=== PATIENT | female | born 1975 | race Two or more races ===

== ENCOUNTER 2018-06-03 08:52 | Outpatient (CLI) | payer OTHER | END 2018-06-03 09:38 | disposition home or self-care (01) | LOC: RAD 501 08:52 | DX: M19.041 Primary osteoarthritis, right hand (principal); M19.042 Primary osteoarthritis, left hand; M79.644 Pain in right finger(s); M85.88 Other specified disorders of bone density and structure, other site ==

== ENCOUNTER 2018-06-03 17:22 | Outpatient (CLI) | payer OTHER | END 2018-06-03 17:23 | disposition home or self-care (01) | LOC: LAB 17:22 | DX: M13.88 Other specified arthritis, other site (principal) ==

== ENCOUNTER 2019-01-17 09:03 | Outpatient (CLI) | payer OTHER | END 2019-01-17 10:56 | disposition home or self-care (01) | LOC: LAB 09:03 | DX: D50.8 Other iron deficiency anemias (principal); N39.0 Urinary tract infection, site not specified; E11.42 Type 2 diabetes mellitus with diabetic polyneuropathy; E78.2 Mixed hyperlipidemia; K76.0 Fatty (change of) liver, not elsewhere classified; E03.8 Other specified hypothyroidism; E55.9 Vitamin D deficiency, unspecified ==

== ENCOUNTER 2019-02-10 12:50 | Outpatient (CLI) | payer OTHER | END 2019-02-10 19:58 | disposition home or self-care (01) | LOC: NUCLEAR 12:50 | DX: M81.0 Age-related osteoporosis without current pathological fracture (principal) ==

== ENCOUNTER 2019-03-09 14:50 | Outpatient (CLI) | payer OTHER | END 2019-03-09 15:59 | disposition home or self-care (01) | LOC: RAD 501 14:50 | DX: M54.2 Cervicalgia (principal); M54.5 Low back pain ==

== ENCOUNTER 2019-06-30 09:51 | Outpatient (CLI) | payer OTHER | END 2019-06-30 10:00 | disposition home or self-care (01) | LOC: LAB 09:51 | DX: C73 Malignant neoplasm of thyroid gland (principal) ==

== ENCOUNTER → 2020-01-01 12:01 | Outpatient (CLI) | payer OTHER | END | disposition home or self-care (01) | LOC: LAB 12:01 | DX: J11.1 Influenza due to unidentified influenza virus with other respiratory manifestations (principal); R05 Cough ==

== ENCOUNTER 2020-01-13 10:07 | Outpatient (CLI) | payer OTHER | END 2020-01-13 11:04 | disposition home or self-care (01) | LOC: LAB 10:07 | DX: D64.89 Other specified anemias (principal); E11.9 Type 2 diabetes mellitus without complications; E78.2 Mixed hyperlipidemia; I10 Essential (primary) hypertension; E03.8 Other specified hypothyroidism; E55.9 Vitamin D deficiency, unspecified ==

== ENCOUNTER 2020-01-30 12:57 | Outpatient (CLI) | payer OTHER | END 2020-01-30 13:03 | disposition home or self-care (01) | LOC: MAMO-SONO 12:57 | DX: Z12.31 Encounter for screening mammogram for malignant neoplasm of breast (principal); Z87.898 Personal history of other specified conditions ==

== ENCOUNTER 2020-02-21 13:26 | Outpatient (CLI) | payer OTHER | END 2020-02-21 13:30 | disposition home or self-care (01) | LOC: LAB 13:26 | DX: J06.9 Acute upper respiratory infection, unspecified (principal); D64.89 Other specified anemias; B95.62 Methicillin resistant Staphylococcus aureus infection as the cause of diseases classified elsewhere ==

== ENCOUNTER 2020-07-16 08:16 | Outpatient (CLI) | payer OTHER | END 2020-07-16 08:32 | disposition home or self-care (01) | LOC: LAB 08:16 | PROVIDERS: ATTEND Internal Medicine Sports Medicine | DX: D64.89 Other specified anemias (principal); E11.9 Type 2 diabetes mellitus without complications; E78.2 Mixed hyperlipidemia; E03.8 Other specified hypothyroidism; I10 Essential (primary) hypertension ==

== ENCOUNTER → 2021-01-10 10:11 | Outpatient (CLI) | payer OTHER | END | disposition home or self-care (01) | LOC: LAB 10:11 | PROVIDERS: ATTEND Internal Medicine Sports Medicine | DX: D64.89 Other specified anemias (principal); E11.9 Type 2 diabetes mellitus without complications; E78.2 Mixed hyperlipidemia; E03.8 Other specified hypothyroidism; I10 Essential (primary) hypertension ==

== ENCOUNTER → 2021-07-10 11:31 | Outpatient (CLI) | payer OTHER | END | disposition home or self-care (01) | LOC: LAB 11:31 | PROVIDERS: ATTEND Internal Medicine Sports Medicine | DX: D64.89 Other specified anemias (principal); E11.9 Type 2 diabetes mellitus without complications; E78.2 Mixed hyperlipidemia; I10 Essential (primary) hypertension; E03.8 Other specified hypothyroidism ==

== ENCOUNTER 2021-09-24 13:15 | Outpatient (CLI) | payer OTHER | END 2021-09-24 13:26 | disposition home or self-care (01) | LOC: MAMO-SONO 13:15 | PROVIDERS: ATTEND Internal Medicine Sports Medicine | DX: N64.89 Other specified disorders of breast (principal) ==

== ENCOUNTER 2021-09-30 13:47 | Outpatient (CLI) | payer OTHER | END 2021-09-30 13:48 | disposition home or self-care (01) | LOC: NUCLEAR 13:47 | PROVIDERS: ATTEND Internal Medicine Sports Medicine | DX: M81.0 Age-related osteoporosis without current pathological fracture (principal) ==

== ENCOUNTER 2022-01-03 10:10 | Outpatient (CLI) | payer OTHER | END 2022-01-03 10:24 | disposition home or self-care (01) | LOC: LAB 10:10 | PROVIDERS: ATTEND Internal Medicine Sports Medicine | DX: D64.9 Anemia, unspecified (principal); E11.9 Type 2 diabetes mellitus without complications; E78.2 Mixed hyperlipidemia; I10 Essential (primary) hypertension; E03.8 Other specified hypothyroidism ==

== ENCOUNTER 2022-07-11 11:19 | Outpatient (CLI) | payer OTHER | END 2022-07-11 12:38 | disposition home or self-care (01) | LOC: LAB 11:19 | PROVIDERS: ATTEND Internal Medicine Sports Medicine | DX: D64.9 Anemia, unspecified (principal); E11.9 Type 2 diabetes mellitus without complications; E78.2 Mixed hyperlipidemia; I10 Essential (primary) hypertension; E03.8 Other specified hypothyroidism; E55.9 Vitamin D deficiency, unspecified ==

== ENCOUNTER 2023-01-09 10:09 | Outpatient (CLI) | payer OTHER | END 2023-01-09 10:10 | disposition home or self-care (01) | LOC: LAB 10:09 | PROVIDERS: ATTEND Internal Medicine Sports Medicine | DX: C73 Malignant neoplasm of thyroid gland (principal); E89.0 Postprocedural hypothyroidism ==

== ENCOUNTER 2023-07-10 10:14 | Outpatient (CLI) | payer OTHER | END 2023-07-10 10:19 | disposition home or self-care (01) | LOC: LAB 10:14 | PROVIDERS: ATTEND Internal Medicine Sports Medicine | DX: E78.2 Mixed hyperlipidemia (principal); E11.9 Type 2 diabetes mellitus without complications; D64.9 Anemia, unspecified; I10 Essential (primary) hypertension; E03.8 Other specified hypothyroidism; E55.9 Vitamin D deficiency, unspecified ==

== ENCOUNTER 2023-10-08 12:08 | Outpatient (CLI) | payer OTHER | END 2023-10-08 12:20 | disposition home or self-care (01) | LOC: MAMO-SONO 12:08 | PROVIDERS: ATTEND Internal Medicine Sports Medicine | DX: Z12.31 Encounter for screening mammogram for malignant neoplasm of breast (principal); N93.8 Other specified abnormal uterine and vaginal bleeding ==

== ENCOUNTER 2023-10-08 14:02 | Outpatient (CLI) | payer OTHER | END 2023-10-08 14:03 | disposition home or self-care (01) | LOC: NUCLEAR 14:02 | PROVIDERS: ATTEND Internal Medicine Sports Medicine | DX: M81.0 Age-related osteoporosis without current pathological fracture (principal) ==

== ENCOUNTER 2024-01-22 08:12 | Outpatient (CLI) | payer OTHER ==
[2024-01-22 09:15] LABS: HEMATOCRIT 38.9 % (36.0-45.00); HEMOGLOBIN 13.4 g/dL (12.0-15.00); MEAN CELL VOLUME 94.1 fL (80.00-100.00); MEAN CORPUSCULAR HEMOGLOBIN 32.4 pg (27.00-32.0); MEAN CORPUSCULAR HGB CONC 34.4 g/dl (32.0-36.0); PLATELET COUNT 330 K/uL (150-450); RED BLOOD COUNT 4.13 M/uL (4.00-6.00); RED CELL DISTRIBUTION WIDTH 13.1 % (11.5-14.5)
[2024-01-22 09:18] LABS: URINE APPEARANCE Clear; URINE BILIRRUBIN Negative (NEGATIVE); URINE BLOOD NHT; URINE COLOR Yellow; URINE GLUCOSE Negative (NEGATIVE); URINE LEUKOCYTE Negative; URINE NITRATE Negative; URINE PROTEIN Negative (NEGATIVE); URINE UROBILINOGEN 0.2 E.U./dl
[2024-01-22 09:22] LABS: URINE BACTERIA 146.1 uL (0.0-1933); URINE EPITHELIAL CELLS 6.4 uL (0.0-38.8); URINE RBC 16.3 uL (0.0-20.8); URINE WBC 2.4 uL (0.0-23.2)
[2024-01-22 09:46] LABS: ALBUMIN 3.6 gm/dL (3.4-5.0); BILIRUBIN TOTAL 0.44 mg/dL (0.3-1.2); CALCIUM 9.6 mg/dL (8.5-10.1); CHOL HDL RATIO 3.7 (0-5.0); CREATININE SERUM 0.58 mg/dL (0.55-1.02); GFR 111.43; GLOBULINA 3.7 G/DL (2.4-3.5); POTASSIUM 3.54 mEq/L (3.5-5.1); T4 FREE 0.96 NG/ML (0.76-1.46); TOTAL PROTEIN 7.3 gm/dL (6.4-8.2); TSH 2.51 uIU/mL (0.358-3.74)
== END 2024-01-22 08:20 | disposition home or self-care (01) ==
LOC: LAB 08:12
PROVIDERS: ATTEND Internal Medicine Sports Medicine
DX: E55.9 Vitamin D deficiency, unspecified (principal); E78.2 Mixed hyperlipidemia; E03.8 Other specified hypothyroidism; D64.9 Anemia, unspecified; E11.9 Type 2 diabetes mellitus without complications; I10 Essential (primary) hypertension

== ENCOUNTER → 2024-05-30 08:08 | Outpatient (CLI) | payer OTHER ==
[2024-05-30 09:20] LABS: ALBUMIN 3.7 gm/dL (3.4-5.0); BILIRUBIN TOTAL 0.57 mg/dL (0.3-1.2); BILIRUBIN,CONJUGATED 0.26 mg/dL (0.0-0.2); BILIRUBIN,UNCONJUGATED 0.31 mg/dL (0.0-0.6); TOTAL PROTEIN 7.9 gm/dL (6.4-8.2)
[2024-05-31 08:11] LABS: hav igm NEGATIVE; hep b c NEGATIVE
[2024-05-31 08:12] LABS: hcv NON REACTIVE
== END | disposition home or self-care (01) ==
LOC: LAB 08:08
PROVIDERS: ATTEND Internal Medicine Gastroenterology
DX: C22.9 Malignant neoplasm of liver, not specified as primary or secondary (principal); C18.9 Malignant neoplasm of colon, unspecified; E74.39 Other disorders of intestinal carbohydrate absorption; R19.5 Other fecal abnormalities

== ENCOUNTER 2024-07-08 10:56 | Outpatient (CLI) | payer OTHER ==
[2024-07-08 12:08] LABS: HEMATOCRIT 36.6 % (36.0-45.00); HEMOGLOBIN 12.5 g/dL (12.0-15.00); MEAN CELL VOLUME 92.8 fL (80.00-100.00); MEAN CORPUSCULAR HEMOGLOBIN 31.6 pg (27.00-32.0); PLATELET COUNT 320 K/uL (150-450); RED BLOOD COUNT 3.95 M/uL (4.00-6.00); RED CELL DISTRIBUTION WIDTH 13.7 % (11.5-14.5)
[2024-07-08 12:09] LABS: URINE APPEARANCE Clear; URINE BILIRRUBIN Negative (NEGATIVE); URINE BLOOD Negative; URINE COLOR Yellow; URINE GLUCOSE Negative (NEGATIVE); URINE KETONE Negative (NEGATIVE); URINE LEUKOCYTE Negative; URINE NITRATE Negative; URINE PROTEIN Negative (NEGATIVE); URINE UROBILINOGEN 0.2 E.U./dl
[2024-07-08 12:11] LABS: URINE BACTERIA 60.4 uL (0.0-1933)
[2024-07-08 12:12] LABS: URINE RBC 1.3 uL (0.0-20.8); URINE WBC 1.6 uL (0.0-23.2)
[2024-07-08 12:50] LABS: ALBUMIN 3.5 gm/dL (3.4-5.0); BILIRUBIN TOTAL 0.62 mg/dL (0.3-1.2); CALCIUM 8.9 mg/dL (8.5-10.1); CHOL HDL RATIO 2.9 (0-5.0); CREATININE SERUM 0.54 mg/dL (0.55-1.02); GFR 121.01; GLOBULINA 4.1 G/DL (2.4-3.5); POTASSIUM 3.76 mEq/L (3.5-5.1); T4 FREE 0.98 NG/ML (0.76-1.46); TOTAL PROTEIN 7.6 gm/dL (6.4-8.2); TSH 1.46 uIU/mL (0.358-3.74)
== END 2024-07-08 11:03 | disposition home or self-care (01) ==
LOC: LAB 10:56
PROVIDERS: ATTEND Internal Medicine Sports Medicine
DX: D64.9 Anemia, unspecified (principal); E11.9 Type 2 diabetes mellitus without complications; E78.2 Mixed hyperlipidemia; I10 Essential (primary) hypertension; E03.9 Hypothyroidism, unspecified

== ENCOUNTER 2024-08-26 10:26 | Outpatient (CLI) | payer OTHER ==
[2024-08-26 11:30] LABS: HEMATOCRIT 37.9 % (36.0-45.00); HEMOGLOBIN 12.9 g/dL (12.0-15.00); MEAN CELL VOLUME 93.4 fL (80.00-100.00); MEAN CORPUSCULAR HEMOGLOBIN 31.9 pg (27.00-32.0); MEAN CORPUSCULAR HGB CONC 34.1 g/dl (32.0-36.0); PLATELET COUNT 283 K/uL (150-450); RED BLOOD COUNT 4.06 M/uL (4.00-6.00); RED CELL DISTRIBUTION WIDTH 13.1 % (11.5-14.5)
[2024-08-26 11:35] LABS: URINE APPEARANCE Clear; URINE BILIRRUBIN Negative (NEGATIVE); URINE BLOOD NHT; URINE COLOR Yellow; URINE GLUCOSE Negative (NEGATIVE); URINE KETONE Negative (NEGATIVE); URINE LEUKOCYTE Negative; URINE NITRATE Negative; URINE PROTEIN Negative (NEGATIVE); URINE UROBILINOGEN 0.2 E.U./dl
[2024-08-26 11:39] LABS: URINE BACTERIA 13.8 uL (0.0-1933); URINE EPITHELIAL CELLS 3.5 uL (0.0-38.8)
[2024-08-26 11:59] LABS: URINE WBC 1.5 uL (0.0-23.2)
[2024-08-26 12:02] LABS: % SATURACION 20.9 % (15-50); ALBUMIN 3.6 gm/dL (3.4-5.0); BILIRUBIN TOTAL 0.52 mg/dL (0.3-1.2); CALCIUM 8.8 mg/dL (8.5-10.1); CHOL HDL RATIO 3.7 (0-5.0); CREATININE SERUM 0.6 mg/dL (0.55-1.02); GFR 106.7; GLOBULINA 4.1 G/DL (2.4-3.5); POTASSIUM 3.87 mEq/L (3.5-5.1); T4 FREE 1.02 NG/ML (0.76-1.46); TOTAL PROTEIN 7.7 gm/dL (6.4-8.2); TSH 1.07 uIU/mL (0.358-3.74)
[2024-08-29 07:07] LABS: hav igm Negative (Negative); hcv Non Reactive (Non Reactive); hep b c Negative (Negative); hep b s ag Negative (Negative)
[2024-08-29 09:11] LABS: ESTRADIOL SERUM < 5.0 pg/mL (.); HSV I IGG TYPE SPECIFIC < 0.91 index (0.00-0.90); PROGESTERONA < 0.1 ng/mL (.); PROLACTIN 17.6 ng/mL (4.8-33.4)
[2024-08-29 23:05] LABS: chla t Negative (Negative); neiss Negative (Negative)
[2024-09-01 05:06] LABS: ANTI MULLERIAN HORMONE < 0.015 ng/mL (.)
[2024-09-01 17:11] LABS: T T 3 ng/dL (4-50); test free 0.3 pg/mL (0.0-4.2)
== END 2024-08-26 10:27 | disposition home or self-care (01) ==
LOC: LAB 10:26
PROVIDERS: ATTEND Specialist
DX: N92.6 Irregular menstruation, unspecified (principal); N92.1 Excessive and frequent menstruation with irregular cycle; R50.9 Fever, unspecified; E16.2 Hypoglycemia, unspecified; E03.9 Hypothyroidism, unspecified; E53.9 Vitamin B deficiency, unspecified; E78.5 Hyperlipidemia, unspecified; N92.5 Other specified irregular menstruation; D27.0 Benign neoplasm of right ovary; D64.9 Anemia, unspecified; Z11.3 Encounter for screening for infections with a predominantly sexual mode of transmission; Z11.4 Encounter for screening for human immunodeficiency virus [HIV]; R10.2 Pelvic and perineal pain; D25.1 Intramural leiomyoma of uterus; E78.2 Mixed hyperlipidemia; N95.1 Menopausal and female climacteric states; N91.5 Oligomenorrhea, unspecified; R42 Dizziness and giddiness

== ENCOUNTER 2025-01-13 09:44 | Outpatient (CLI) | payer OTHER ==
[2025-01-13 10:51] LABS: URINE APPEARANCE Clear; URINE BILIRRUBIN Negative (NEGATIVE); URINE BLOOD Trace; URINE COLOR Yellow; URINE GLUCOSE Negative (NEGATIVE); URINE KETONE Negative (NEGATIVE); URINE LEUKOCYTE Trace; URINE NITRATE Negative; URINE PROTEIN Negative (NEGATIVE); URINE UROBILINOGEN 0.2 E.U./dl
[2025-01-13 10:54] LABS: URINE BACTERIA 216.6 uL (0.0-1933); URINE EPITHELIAL CELLS 18.9 uL (0.0-38.8); URINE RBC 10.7 uL (0.0-20.8); URINE WBC 15.9 uL (0.0-23.2)
[2025-01-13 11:10] LABS: HEMATOCRIT 38.7 % (36.0-45.00); HEMOGLOBIN 12.9 g/dL (12.0-15.00); MEAN CELL VOLUME 91.2 fL (80.00-100.00); MEAN CORPUSCULAR HEMOGLOBIN 30.5 pg (27.00-32.0); MEAN CORPUSCULAR HGB CONC 33.4 g/dl (32.0-36.0); PLATELET COUNT 292 K/uL (150-450); RED BLOOD COUNT 4.24 M/uL (4.00-6.00); RED CELL DISTRIBUTION WIDTH 13.5 % (11.5-14.5)
[2025-01-13 11:19] LABS: URINE CAST 0.14 uL (0.0-1.40)
[2025-01-13 11:27] LABS: ALBUMIN 3.5 gm/dL (3.4-5.0); BILIRUBIN TOTAL 0.66 mg/dL (0.3-1.2); CALCIUM 8.8 mg/dL (8.5-10.1); CREATININE SERUM 0.59 mg/dL (0.55-1.02); GFR 108.79; POTASSIUM 3.78 mEq/L (3.5-5.1); T4 FREE 0.98 NG/ML (0.76-1.46); TOTAL PROTEIN 7.5 gm/dL (6.4-8.2); TSH 1.41 uIU/mL (0.358-3.74)
== END 2025-01-13 09:46 | disposition home or self-care (01) ==
LOC: LAB 09:44
PROVIDERS: ATTEND Internal Medicine Sports Medicine
DX: D64.9 Anemia, unspecified (principal); E11.9 Type 2 diabetes mellitus without complications; E78.2 Mixed hyperlipidemia; E03.8 Other specified hypothyroidism; I10 Essential (primary) hypertension

== ENCOUNTER → 2025-07-10 06:32 | Outpatient (CLI) | payer OTHER ==
[2025-07-10 07:42] LABS: BASO % 0.8 % (0.1-1.2); EOS # 0.13 (0.04-0.54); EOS % 1.8 % (0.7-7.0); LYMPH # 3.37 (1.18-3.74); LYMPH % 45.5 % (19.3-53.1); MEAN PLATELET VOLUME 10.00 fl (9.4-12.4); MONO # 0.66 (0.24-0.82); MONO % 8.9 % (4.7-12.5); NEUT # 3.17 (1.56-6.13); NEUT % 42.7 % (34.0-71.1); RED CELL DISTRIBUTION WIDTH 13.2 % (11.6-14.4)
[2025-07-10 07:46] LABS: URINE APPEARANCE Cloudy; URINE BILIRRUBIN Negative (NEGATIVE); URINE BLOOD Moderate; URINE COLOR Dark Yellow; URINE GLUCOSE Negative (NEGATIVE); URINE KETONE Trace (NEGATIVE); URINE LEUKOCYTE Large; URINE NITRATE Negative; URINE PROTEIN Trace (NEGATIVE); URINE UROBILINOGEN 1.0 E.U./dl
[2025-07-10 07:49] LABS: URINE BACTERIA 8152.6 uL (0.0-1933); URINE EPITHELIAL CELLS 185.3 uL (0.0-38.8); URINE RBC 75.8 uL (0.0-20.8); URINE WBC 32.3 uL (0.0-23.2)
[2025-07-10 08:39] LABS: ALT/SGPT 48.0 U/L (12-78); AST/SGOT 30.0 U/L (15-37); BILIRUBIN TOTAL 0.41 mg/dL (0.3-1.2); BUN CREA RATIO 25.0 (7.0-25.0); CHOL HDL RATIO 3.0 (0-5.0); CREATININE SERUM 0.6 mg/dL (0.55-1.02); GFR 106.7; GLOBULINA 3.8 G/DL (2.4-3.5); GLUCOSE FASTING 95.0 mg/dL (65-100); HDL 64.0 mg/dl (40-60); LDL 85.0 mg/dl (0-130); OSMOLALITY SERUM 282.0 MOSM/KG (275-295); T4 FREE 1.1 NG/ML (0.76-1.46); TSH 2.0 uIU/mL (0.358-3.74); VLDL 46.0 (0-39)
[2025-07-10 08:41] LABS: URINE CAST 0.14 uL (0.0-1.40)
[2025-07-10 08:43] LABS: URINE YEAST FEW /hpf
== END | disposition home or self-care (01) ==
LOC: LAB 06:32
PROVIDERS: ATTEND Internal Medicine Sports Medicine
DX: D64.9 Anemia, unspecified (principal); E11.9 Type 2 diabetes mellitus without complications; E78.2 Mixed hyperlipidemia; I10 Essential (primary) hypertension; E03.8 Other specified hypothyroidism

== ENCOUNTER 2025-07-13 16:33 | Outpatient (CLI) | payer OTHER | END 2025-07-13 16:43 | disposition home or self-care (01) | LOC: RAD 16:33 | PROVIDERS: ATTEND Internal Medicine Sports Medicine | DX: N30.00 Acute cystitis without hematuria (principal); M54.2 Cervicalgia ==